=== PATIENT | female | born 1985 | race Caucasian/White ===

== ENCOUNTER 2024-09-29 13:15 | Emergency (ER) | payer MEDICAID ==
[~2024-09-29] VITALS: Ht 170.2 cm; Wt 90.0 kg
[2024-09-29 13:21] VITALS: O2SAT 99
[2024-09-29] MEDS ORDERED: SULF1TAB48 MT (15:00)
[2024-09-29] MEDS ORDERED: IBUP-2030 MT (15:00)
[2024-09-29] MEDS: BACITRACIN ZINC OINT UDPKT TOP ONE (15:15)
[2024-09-29] MEDS ORDERED: POVIDONE-IODINE 10% TOPICAL SOLN 240ML TOP ONE (15:15)
[2024-09-29] MEDS ORDERED: CEPH500C2 MT (15:58)
[2024-09-29] MEDS: KETOROLAC 30MG/ML VIAL IM ONE (16:26)
[2024-09-29 16:40] VITALS: BP 134/81; PULSE 84; RESP 16; TEMP 36.6; O2SAT 100
== END 2024-09-29 16:30 | disposition home or self-care (01) ==
LOC: ER 13:15
DX: L02.01 Cutaneous abscess of face (principal); E11.9 Type 2 diabetes mellitus without complications; J45.909 Unspecified asthma, uncomplicated; Z88.5 Allergy status to narcotic agent; Z98.890 Other specified postprocedural states
CPT/HCPCS: 10060; 96372; 99283; J1885; Z7610